=== PATIENT | female | born 1970 | race Caucasian/White ===

== ENCOUNTER 2020-01-10 10:21 | Outpatient (REF) | payer BC, SELFPAY | END 2020-01-10 10:22 | disposition home or self-care (01) | LOC: HO.HMGCLDS 10:21 | PROVIDERS: PCP Internal Medicine; Visit Provider Internal Medicine | DX: Z20.828 Contact with and (suspected) exposure to other viral communicable diseases (principal) | CPT/HCPCS: C9803; U0003 ==

== ENCOUNTER 2021-08-20 15:00 | Outpatient (RCR) | payer BC, SELFPAY | END 2021-08-20 15:56 | disposition home or self-care (01) | LOC: HO.PTCHIC 15:00 | PROVIDERS: PCP Internal Medicine; Visit Provider Orthopaedic Surgery | DX: M17.12 Unilateral primary osteoarthritis, left knee (principal) | CPT/HCPCS: 97110; 97161 ==

== ENCOUNTER 2021-12-04 10:00 | Outpatient (RCR) | payer BC, SELFPAY | END 2021-12-04 11:06 | disposition home or self-care (01) | LOC: HO.PTCHIC 10:00 | PROVIDERS: PCP Internal Medicine; Visit Provider Orthopaedic Surgery | DX: Z96.652 Presence of left artificial knee joint (principal) | CPT/HCPCS: 97110; 97112; 97140; 97161; 97164; 97530 ==

== ENCOUNTER 2022-08-05 13:00 | Outpatient (RCR) | payer BC, SELFPAY | END 2022-09-04 11:40 | disposition home or self-care (01) | LOC: HO.PTCHIC 13:00 | PROVIDERS: PCP Internal Medicine; Visit Provider Physical Medicine & Rehabilitation | DX: M25.511 Pain in right shoulder (principal) | CPT/HCPCS: 97110; 97140; 97161 ==